=== PATIENT | male | born 1975 | race Caucasian/White ===

== ENCOUNTER 2017-01-05 22:03 | Emergency (ER) | payer OTHER ==
[~2017-01-05] VITALS: Ht 175.3 cm; Wt 84.7 kg
[2017-01-05 23:00] LABS: HEMATOCRIT 40.2 % (38.0-50.0); MCH 30.5 PG (29.0-34.0); MCHC 34.8 G/DL (30.0-36.0); MCV 87.6 FL (86-99); PLATELET COUNT 210 K/uL (156-360); RBC DIS.WIDTH-CV 11.9 % (11.8-14.6); RBC DIS.WIDTH-SD 38.4 % (39-53); RED BLOOD COUNT 4.59 M/uL (4.00-5.50); WHITE BLOOD COUNT 11.9 K/uL (4.1-10.2)
[2017-01-05 23:10] LABS: CHLORIDE 99 mEq/L (99-109); POTASSIUM 3.2 mEq/L (3.7-5.4); SODIUM 139 mEq/L (136-147)
[2017-01-05 23:12] LABS: GLUCOSE 122 mg/dL (70-99)
[2017-01-05 23:13] LABS: ANION GAP 12 MEQ/L (2-14)
[2017-01-05 23:16] LABS: GFR ESTIMATE (CALCULATED) > 59 mL/min/
[2017-01-05 23:17] LABS: UREA NITROGEN (BUN) 11 mg/dL (9-23)
[2017-01-05 23:22] LABS: TROP-I INTERPRETATION NEGATIVE; TROPONIN-I < 0.01 ng/mL (0.0-0.30)
[2017-01-06 00:31] VITALS: BP 120/84
== END 2017-01-06 00:32 | disposition home or self-care (01) ==
LOC: EME 22:03 → EXP 22:03
DX: R07.9 Chest pain, unspecified (principal); K50.919 Crohn's disease, unspecified, with unspecified complications; Z87.891 Personal history of nicotine dependence
CPT/HCPCS: 71020; 80048; 84484; 85027; 93005; 99281; 99284